=== PATIENT | female | born 1985 | race Caucasian/White ===

== ENCOUNTER 2018-01-19 08:17 | Day surgery (SDC) | payer MEDICARE ==
[~2018-01-19] VITALS: Ht 170.2 cm; Wt 169.6 kg
--- NOTE | ~2018-01-19 | OP ---
PATIENT NAME: ELSA BONNER MEDICAL RECORD: [id number] :87 LOCATION:[facility] ADMISSION DATE: SURGEON: CATRACHO CACERES MD DATE OF OPERATION: 01/19/2018 PREOPERATIVE DIAGNOSES: 1. Epidermoid cyst of the posterior neck (1.5 cm). 2. Morbid obesity with a BMI of 59. 3. Tobacco dependence syndrome. 4. Hypertension. POSTOPERATIVE DIAGNOSES: 1. Epidermoid cyst of the posterior neck (1.5 cm). 2. Morbid obesity with a BMI of 59. 3. Tobacco dependence syndrome. 4. Hypertension. PROCEDURE: Excision of a 1.5 cm posterior left neck sebaceous cyst. SURGEON: Catracho Caceres MD REPORT OF PROCEDURE: The patient's left neck was prepped and draped in sterile fashion. An ovoid incision was made overlying the mass. Electrocautery was used to dissect through the subcutaneous tissues and we completely excised the sebaceous cyst. This was sent off for permanent specimen. We then irrigated out the wound and any bleeding was treated with electrocautery. The skin was closed with interrupted 2-0 nylons and dressed appropriately. COMPLICATIONS: None. CONDITION: Stable. ANESTHESIA: General endotracheal and local. BLOOD LOSS: 10 mL. TRANSINT:[id number] Voice Confirmation ID: [id number] DOCUMENT ID: [id number] CATRACHO CACERES MD at 1409 CC: HOWARD GRUBER MD [id number] DICTATION DATE: 01/19/18 1302 [facility]OSP[facility] PHARMAC[facility] DIRECTOR: 01/19/18 1310 [facility] 01/19/18 [place] [id number]
[~2018-01-19 08:17] MED LIST: ALDACTONE100 MG PO; BACTRIM DS TABL1 TAB PO; CELEXA20 MG PO; COGENTIN1 MG PO; DESERYL100 MG PO; DITROPAN X10 MG/BOTT PO; GEODON60 MG PO; GLUCOPHAGE500 MG PO; LITHIUM CARBON300 MG; LITHIUM CARBON300 MG PO; OMEPRAZOLE20 M1 PO; RISPERDAL3 MG PO; TOPAMAX50 MG PO; TOPROL XL50 MG PO; TYLENOL W/CODEI1 TAB PO; ZOCOR20 MG PO; ZYPREXA15 MG
[2018-01-19 08:37] LABS: HEMATOCRIT 41.3 % (36.0-48.0); HEMOGLOBIN 13.6 g/dL (12-16); MCHC 32.9 g/dL (31.0-37.0); MCV 91.2 fL (80.0-100.0); MEAN PLATELET VOLUME 11.6 fL (7.4-10.4); RBC 4.53 10x6/uL (4.00-5.40); RDW 14.2 % (11.5-14.5); WBC 13.8 10x3/uL (4.8-10.8)
[2018-01-19 08:49] LABS: CALC OSMOLALITY 273 mosm/kg (275-300); CALCIUM 9.1 mg/dL (8.5-10.1); CARBON DIOXIDE 26.5 mmol/L (21.0-32.0); CHLORIDE - SERUM 104 mmol/L (98-107); CREATININE - SERUM 0.8 mg/dL (0.6-1.3); GLUCOSE 151 mg/dL (74-106); POTASSIUM - SERUM 4.3 mmol/L (3.5-5.1); SODIUM 136 mmol/L (136-145); UREA NITROGEN 9 mg/dL (7-18); eGFR NON AFRICAN AMERICAN 89 mL/min (90-120)
[2018-01-19 10:21] VITALS: BP 136/82; Ht 170.2 cm; Wt 169.6 kg
[2018-01-19 10:36] LABS: HCG URINE NEGATIVE (NEGATIVE)
[2018-01-19] MEDS ORDERED: DEMEROL100 MG PO (12:58)
== END 2018-01-19 15:01 | disposition home or self-care (01) ==
LOC: D.OPS 08:17 → D.PAN 11:00 → D.OPS 11:00 → D.PAN 11:30 → D.OPS 15:01
PROVIDERS: Anesthesiology; Surgery
DX: L72.8 Other follicular cysts of the skin and subcutaneous tissue (principal); E66.01 Morbid (severe) obesity due to excess calories; Z68.43 Body mass index [BMI] 50.0-59.9, adult; F17.200 Nicotine dependence, unspecified, uncomplicated; I10 Essential (primary) hypertension; Z01.812 Encounter for preprocedural laboratory examination

== ENCOUNTER 2018-03-18 18:27 | Emergency (ER) | payer MEDICARE ==
[~2018-03-18] VITALS: Ht 170.2 cm; Wt 169.5 kg
[~2018-03-18 18:27] MED LIST changes: +DEMEROL100 MG PO
[2018-03-18 18:31] VITALS: Ht 170.2 cm; Wt 169.5 kg
[2018-03-18] MEDS ORDERED: NAPROSYN500 MG PO (21:08)
[2018-03-18] MEDS ORDERED: CYCLOBENZAPRINE5 MG PO (21:08)
[2018-03-18 21:15] VITALS: BP 130/71
== END 2018-03-18 21:13 | disposition home or self-care (01) ==
LOC: D.ER 18:27
DX: M54.31 Sciatica, right side (principal); E66.01 Morbid (severe) obesity due to excess calories; I10 Essential (primary) hypertension; Z86.59 Personal history of other mental and behavioral disorders; K21.9 Gastro-esophageal reflux disease without esophagitis

== ENCOUNTER → 2019-09-24 18:43 | Outpatient (CLI) | payer MEDICARE ==
[2018-03-18 18:31] VITALS: BMI 58.5
[~2019-09-24 18:43] MED LIST changes: +CYCLOBENZAPRINE5 MG PO; +NAPROSYN500 MG PO
[2019-09-24 19:41] LABS: HEMATOCRIT 46.8 % (36.0-48.0); HEMOGLOBIN 14.2 g/dL (12-16); MCH 29.6 pg (26.0-34.0); MCHC 30.3 g/dL (31.0-37.0); MCV 97.5 fL (80.0-100.0); MEAN PLATELET VOLUME 11.5 fL (7.4-10.4); RDW 14.4 % (11.5-14.5); WBC 14.2 10x3/uL (4.8-10.8)
[2019-09-24 20:02] LABS: PLATELET COUNT 368 10x3/uL (130-400)
[2019-09-24 20:37] LABS: EOSINOPHILS 3 % (0-7); LYMPHOCYTES 26 % (15-50); NEUTROPHILS 71 % (40-80); PLATELET ESTIMATE NORMAL
== END | disposition home or self-care (01) ==
LOC: D.LABREF 18:43
PROVIDERS: ATTEND Internal Medicine
DX: D72.828 Other elevated white blood cell count (principal)